=== PATIENT | female | born 2000 | race Caucasian/White ===

== ENCOUNTER 2023-09-20 08:10 | Day surgery (SDC) | payer MEDICAID ==
[2023-09-20] MEDS: Lactated Ringers 1,000 ML IV SCH (08:38)
[2023-09-20] MEDS ORDERED: propofoL 50 ML ONE (09:10)
[2023-09-20] MEDS ORDERED: dexmedeTOMIDine HCl 200 MCG/2 ML SDV ONE (09:45)
[2023-09-20 11:31] VITALS: BP 87/53; PULSE 66
== END 2023-09-20 11:47 | disposition home or self-care (01) ==
LOC: MW.SDS 08:10
PROVIDERS: ATTEND Surgery
DX: K29.50 Unspecified chronic gastritis without bleeding (principal); K90.0 Celiac disease; F41.9 Anxiety disorder, unspecified; F32.A Depression, unspecified; F17.290 Nicotine dependence, other tobacco product, uncomplicated; Z79.899 Other long term (current) drug therapy
CPT/HCPCS: 43239; 45380; 81025; J2704; J7120; 00813; J3490